=== PATIENT | female | born 1995 | race Caucasian/White ===

== ENCOUNTER 2017-01-17 12:06 | Emergency (ER) | payer OTHER ==
[~2017-01-17] VITALS: Ht 175.3 cm; Wt 113.0 kg
[~2017-01-17 12:06] MED LIST: IBUP800 PO; PREN0.01 PO
[2017-01-17 12:08] VITALS: BP 138/80; PULSE 126; RESP 20; TEMP 98; O2SAT 97
--- NOTE | 2017-01-17 12:51 | PD ---
HPI Chief Complaint: Abdominal Pain Time Seen by Provider: 12:47 Travel History International Travel<30 days: No Contact w/Intl Traveler<30days: No Traveled to known affect area: No History of Present Illness HPI Patient is a 21-year-old female who presents emergency for evaluation of right flank and abdominal pain. Patient states those symptoms started yesterday, she denies any urinary complaints. She states that 2 days ago she started coughing , feeling dizzy, nauseated and complained of sinus pressure that was worse when she bent over. She also reports fatigue and body aches. She has not been vomiting but has had poor oral intake secondary to the nausea. Patient went to an urgent care center this morning who sent her to the emergency department to be evaluated for diffuse abdominal pain. Patient rates her abdominal pain as a 6 out of 10 and describes it as aching. PFSH Past Medical History Kidney Stones: Yes Menopausal: No Past Surgical History Surgical History: No Previous Surgery Family History Family History: Negative Social History Alcohol Use: No Tobacco Use: Yes (formal smoker but quit throughout the ) Substance Use: No Allergies-Medications (Allergen,Severity, Reaction): Coded Allergies: Tramadol (Verified Allergy, Mild, GI UPSET, 01/17/17) Reported Meds & Prescriptions Reported Meds & Active Scripts Active No Active Prescriptions or Reported Medications Review of Systems Except as stated in HPI: all other systems reviewed are Neg General / Constitutional: Positive: Fever, Other (increased fatigue) HENT: Positive: Lightheadedness Cardiovascular: No: Chest Pain or Discomfort Respiratory: Positive: Cough, No: Shortness of Breath Gastrointestinal: Positive: Nausea, Abdominal Pain, Loss of Appetite, No: Vomiting, Diarrhea Genitourinary: Positive: Pelvic Pain, Flank Pain, No: Dysuria Musculoskeletal: Positive: Myalgias Neurologic: Positive: Dizziness Physical Exam Narrative GENERAL: Overweight, well-developed, well-nourished, female. Appears acutely ill, in no acute distress. SKIN: Warm and dry. HEAD: Atraumatic. Normocephalic. EYES: Pupils equal and round. No scleral icterus. No injection or drainage. ENT: No nasal bleeding or discharge. Mucous membranes pink and moist. NECK: Trachea midline. No JVD. CARDIOVASCULAR: Tachycardic. No murmur appreciated. RESPIRATORY: No accessory muscle use. Clear to auscultation. Breath sounds diminished in bases. GASTROINTESTINAL: Abdomen soft, moderately tender to palpation diffusely, more so in the right and left lower quadrants., nondistended. Hepatic and splenic margins not palpable. The bowel sounds. Positive guarding. MUSCULOSKELETAL: No obvious deformities. No clubbing. No cyanosis. No edema. NEUROLOGICAL: Awake and alert. No obvious cranial nerve deficits. Motor grossly within normal limits. Normal speech. PSYCHIATRIC: Appropriate mood and affect; insight and judgment normal. Data Data Last Documented VS Vital Signs Date Time Temp Pulse Resp B/P Pulse Ox O2 Delivery O2 Flow Rate FiO2 01/17/17 12:08 98.0 126 20 138/80 97 Room Air Orders Complete Blood Count With Diff (01/17/17 12:44) Comprehensive Metabolic Panel (01/17/17 12:44) Lipase (01/17/17 12:44) Lactic Acid (01/17/17 12:44) Prothrombin Time / Inr (Pt) (01/17/17 12:44) Act Partial Throm Time (Ptt) (01/17/17 12:44) Urinalysis - C+S If Indicated (01/17/17 12:44) Chest, Single Ap (01/17/17 12:44) Ed Urine Pregnancytest Poc (01/17/17 12:44) Urine Culture (01/17/17 13:06) Labs Laboratory Tests Test 01/17/17 01/17/17 13:05 13:06 Lactic Acid Level 1.1 mmol/L White Blood Count 13.6 TH/MM3 Red Blood Count 4.84 MIL/MM3 Hemoglobin 13.8 GM/DL Hematocrit 41.1 % Mean Corpuscular Volume 84.9 FL Mean Corpuscular Hemoglobin 28.6 PG Mean Corpuscular Hemoglobin 33.7 % Concent Red Cell Distribution Width 13.2 % Platelet Count 269 TH/MM3 Mean Platelet Volume 7.7 FL Neutrophils (%) (Auto) 72.7 % Lymphocytes (%) (Auto) 17.1 % Monocytes (%) (Auto) 9.0 % Eosinophils (%) (Auto) 0.8 % Basophils (%) (Auto) 0.4 % Neutrophils # (Auto) 9.9 TH/MM3 Lymphocytes # (Auto) 2.3 TH/MM3 Monocytes # (Auto) 1.2 TH/MM3 Eosinophils # (Auto) 0.1 TH/MM3 Basophils # (Auto) 0.1 TH/MM3 CBC Comment DIFF FINAL Differential Comment Prothrombin Time 12.1 SEC Prothromb Time International 1.1 RATIO Ratio Activated Partial 29.6 SEC Thromboplast Time Urine Color YELLOW Urine Turbidity HAZY Urine pH 5.5 Urine Specific [place] 1.021 Urine Protein TRACE mg/dL Urine Glucose (UA) NEG mg/dL Urine Ketones NEG mg/dL Urine Occult Blood SMALL Urine Nitrite POS Urine Bilirubin NEG Urine Urobilinogen LESS THAN 2.0 MG/DL Urine Leukocyte Esterase MOD Urine RBC 5 /hpf Urine WBC 18 /hpf Urine Squamous Epithelial 15 /hpf Cells Urine Bacteria MANY /hpf Urine Mucus MOD /lpf Microscopic Urinalysis Comment CULTURE INDICATED Sodium Level 136 MEQ/L Potassium Level 3.9 MEQ/L Chloride Level 105 MEQ/L Carbon Dioxide Level 21.0 MEQ/L Anion Gap 10 MEQ/L Blood Urea Nitrogen 11 MG/DL Creatinine 0.87 MG/DL Estimat Glomerular Filtration 81 ML/MIN Rate Random Glucose 95 MG/DL Calcium Level 8.9 MG/DL Total Bilirubin 0.4 MG/DL Aspartate Amino Transf 14 U/L (AST/SGOT) Alanine Aminotransferase 24 U/L (ALT/SGPT) Alkaline Phosphatase 85 U/L Total Protein 8.3 GM/DL Albumin 3.6 GM/DL Lipase 76 U/L [facility] Medical Decision Making Medical Screen Exam Complete: Yes Emergency Medical Condition: Yes Interpretation(s) Vital Signs Date Time Temp Pulse Resp B/P Pulse Ox O2 Delivery O2 Flow Rate FiO2 01/17/17 12:08 98.0 126 20 138/80 97 Room Air Differential Diagnosis Pyelonephritis versus UTI versus appendicitis versus colitis versus viral syndrome versus other Narrative Course Patient is a 21-year-old female sent by the urgent care center for evaluation of diffuse abdominal pain. She was diagnosed with a urinary tract infection at the urgent care center, and EKG performed there shows sinus tachycardia with no ST changes. EKG is with patient. Patient is abdomen is diffusely tender with a concentration over the right left lower quadrants. Positive CVAT bilaterally. Labs ordered and pending. Patient will likely need a CT scan of the abdomen and pelvis with IV contrast when medical bed available. Care patient be transferred to provider when medical bed available. Scripts No Active Prescriptions or Reported Meds Ailyn Chen Jan 17, 2017 12:51
[2017-01-17 13:24] LABS: AUTOMATED NEUTROPHIL # 9.9 TH/MM3 (1.8-7.7); BASOPHIL # 0.1 TH/MM3 (0-0.2); BASOPHIL % 0.4 % (0.0-2.0); EOSINOPHIL # 0.1 TH/MM3 (0-0.4); EOSINOPHIL % 0.8 % (0.0-4.0); HEMATOCRIT 41.1 % (35.0-46.0); HEMO FLAGS DIFF FINAL; LYMPH % 17.1 % (9.0-44.0); LYMPHOCYTE # 2.3 TH/MM3 (1.0-4.8); MEAN CELL VOLUME 84.9 FL (80.0-100.0); MEAN CORPUSCULAR HEMOGLOBIN 28.6 PG (27.0-34.0); MEAN CORPUSCULAR HGB CONC 33.7 % (32.0-36.0); NEUT % 72.7 % (16.0-70.0); PLATELET COUNT 269 TH/MM3 (150-450); RED BLOOD COUNT 4.84 MIL/MM3 (4.00-5.30); RED CELL DISTRIBUTION WIDTH 13.2 % (11.6-17.2); WHITE BLOOD COUNT 13.6 TH/MM3 (4.0-11.0)
[2017-01-17 13:31] LABS: BACTERIA, URINE MANY /hpf; BLOOD, URINE SMALL (NEG); COMMENT (UR) CULTURE INDICATED; CULTURE IF INDICATED CULTURE INDICATED; GLUCOSE,URINE NEG (NEG); KETONE, URINE NEG (NEG); MUCUS URINE MOD /lpf (OCC); NITRITE,URINE POS (NEG); PH, URINE 5.5 (5.0-8.5); SQUAMOUS EPITHELIAL CELL URINE 15 /hpf (0-5); URINE COLOR YELLOW (YELLW/STRAW)
[2017-01-17 13:33] LABS: APTT (PATIENT) 29.6 SEC (24.3-30.1); INTERNATIONAL NORMALIZED RATIO 1.1 RATIO; PROTHROMBIN TIME - PATIENT 12.1 SEC (9.8-11.6)
--- NOTE | 2017-01-17 13:40 | RADRPT ---
EXAM DATE/TIME: 01/17/2017 13:02 [facility] COMPARISON: No previous studies available for comparison. INDICATIONS : Short of breath, vertigo, palpitations MEDICAL HISTORY : negative test SURGICAL HISTORY : None. ENCOUNTER: Initial ACUITY: 1 day PAIN SCORE: 0/10 LOCATION: Bilateral chest FINDINGS: A single portable upright view of the chest shows a vague parenchymal density within the medial right lung base. Remaining lungs are clear. No effusions. Heart is normal in size. No free air below eithe r hemidiaphragm. Bony structures are unremarkable. CONCLUSION: Right lower lobe parenchymal density potentially related to a an acute infectious infiltrate. A promi nent epicardial fat-pad can have a similar appearance. Followup exam to document resolution is sugges chad. Julio C Junior Jr., MD on January 17, 2017 at 13:38 Board Certified Radiologist. This report was verified electronically.
[2017-01-17 13:46] LABS: ALT (GPT) 24 U/L (10-53); ANION GAP 10 MEQ/L (5-15); AST (GOT) 14 U/L (15-37); BLOOD UREA NITROGEN 11 MG/DL (7-18); CHLORIDE 105 MEQ/L (98-107); GLOMERULAR FILTRATION RATE 81 ML/MIN (>89); POTASSIUM 3.9 MEQ/L (3.5-5.1); SODIUM (NA) 136 MEQ/L (136-145)
[2017-01-17 13:49] LABS: ALKALINE PHOSPHATASE 85 U/L (45-117); TOTAL BILIRUBIN ADULT 0.4 MG/DL (0.2-1.0)
--- NOTE | 2017-01-17 15:26 | PD ---
Physical Exam Time Seen by Provider: 15:23 Narrative She was initially seen and evaluated in triage by CAL Gonzalez. See her note for initial assessment and evaluation. Data Data Last Documented VS Vital Signs Date Time Temp Pulse Resp B/P Pulse Ox O2 Delivery O2 Flow Rate FiO2 01/17/17 12:08 98.0 126 20 138/80 97 Room Air Orders Complete Blood Count With Diff (01/17/17 12:44) Comprehensive Metabolic Panel (01/17/17 12:44) Lipase (01/17/17 12:44) Lactic Acid (01/17/17 12:44) Prothrombin Time / Inr (Pt) (01/17/17 12:44) Act Partial Throm Time (Ptt) (01/17/17 12:44) Urinalysis - C+S If Indicated (01/17/17 12:44) Chest, Single Ap (01/17/17 12:44) Ed Urine Pregnancytest Poc (01/17/17 12:44) Urine Culture (01/17/17 13:06) Ct Abd/Pel W Iv Contrast(Rout) (01/17/17 15:27) Influenzae A/B Antigen (01/17/17 15:34) Sodium Chlor 0.9% 1000 Ml Inj (Ns 1000 M (01/17/17 15:40) Levofloxacin 750 Mg Premix Inj (Levaquin (01/17/17 15:45) Ketorolac Inj (Toradol Inj) (01/17/17 15:45) Iohexol 350 Inj (Omnipaque 350 Inj) (01/17/17 16:23) Labs Laboratory Tests Test 01/17/17 01/17/17 13:05 13:06 Lactic Acid Level 1.1 mmol/L White Blood Count 13.6 TH/MM3 Red Blood Count 4.84 MIL/MM3 Hemoglobin 13.8 GM/DL Hematocrit 41.1 % Mean Corpuscular Volume 84.9 FL Mean Corpuscular Hemoglobin 28.6 PG Mean Corpuscular Hemoglobin 33.7 % Concent Red Cell Distribution Width 13.2 % Platelet Count 269 TH/MM3 Mean Platelet Volume 7.7 FL Neutrophils (%) (Auto) 72.7 % Lymphocytes (%) (Auto) 17.1 % Monocytes (%) (Auto) 9.0 % Eosinophils (%) (Auto) 0.8 % Basophils (%) (Auto) 0.4 % Neutrophils # (Auto) 9.9 TH/MM3 Lymphocytes # (Auto) 2.3 TH/MM3 Monocytes # (Auto) 1.2 TH/MM3 Eosinophils # (Auto) 0.1 TH/MM3 Basophils # (Auto) 0.1 TH/MM3 CBC Comment DIFF FINAL Differential Comment Prothrombin Time 12.1 SEC Prothromb Time International 1.1 RATIO Ratio Activated Partial 29.6 SEC Thromboplast Time Urine Color YELLOW Urine Turbidity HAZY Urine pH 5.5 Urine Specific [place] 1.021 Urine Protein TRACE mg/dL Urine Glucose (UA) NEG mg/dL Urine Ketones NEG mg/dL Urine Occult Blood SMALL Urine Nitrite POS Urine Bilirubin NEG Urine Urobilinogen LESS THAN 2.0 MG/DL Urine Leukocyte Esterase MOD Urine RBC 5 /hpf Urine WBC 18 /hpf Urine Squamous Epithelial 15 /hpf Cells Urine Bacteria MANY /hpf Urine Mucus MOD /lpf Microscopic Urinalysis Comment CULTURE INDICATED Sodium Level 136 MEQ/L Potassium Level 3.9 MEQ/L Chloride Level 105 MEQ/L Carbon Dioxide Level 21.0 MEQ/L Anion Gap 10 MEQ/L Blood Urea Nitrogen 11 MG/DL Creatinine 0.87 MG/DL Estimat Glomerular Filtration 81 ML/MIN Rate Random Glucose 95 MG/DL Calcium Level 8.9 MG/DL Total Bilirubin 0.4 MG/DL Aspartate Amino Transf 14 U/L (AST/SGOT) Alanine Aminotransferase 24 U/L (ALT/SGPT) Alkaline Phosphatase 85 U/L Total Protein 8.3 GM/DL Albumin 3.6 GM/DL Lipase 76 U/L [facility] Medical Record Reviewed: Yes Supervised Visit with CURTIS: Yes Differential Diagnosis Viral illness, pneumonia, influenza, urine or tract infection, pyelonephritis Narrative Course 1535: Urine negative. WBC 13.6. Coags unremarkable. CMP unremarkable. Lipase 76. Lactic acid 1.1. Urinalysis was signs of infection; positive nitrites and leukocyte esterase. Urine Culture pending. Patient placed on cardiopulmonary monitor. IV site obtained. Fluid bolus ordered. Toradol ordered. Rocephin ordered. CT abdomen and pelvis ordered. Influenza ordered. Chest x-ray concludes: Chest X-Ray 01/17/17 0274 Signed Impressions: Service Date/Time: Tuesday, January 17, 2017 13:02 - CONCLUSION: Right lower lobe parenchymal density potentially related to a an acute infectious infiltrate. A prominent epicardial fat-pad can have a similar appearance. Followup exam to document resolution is suggested. Julio C Junior Jr., MD 1706: CT abdomen/pelvis concludes: Last 24 hours Impressions Abdomen/Pelvis CT 01/17/17 1527 Signed Impressions: Service Date/Time: Tuesday, January 17, 2017 16:23 - CONCLUSION: Small subcentimeter area of decreased density cortex right kidney mid to upper pole laterally of indeterminate chronicity. This could represent a remote insult or small area of inflammation. 4 or 5 cm length of terminal ileum 5-6 cm proximal to the ileocecal valve which is mildly dilated and fluid filled nonspecific as to significance or etiology. Holland Foy MD Chest X-Ray 01/17/17 1244 Signed Impressions: Service Date/Time: Tuesday, January 17, 2017 13:02 - CONCLUSION: Right lower lobe parenchymal density potentially related to a an acute infectious infiltrate. A prominent epicardial fat-pad can have a similar appearance. Followup exam to document resolution is suggested. Julio C Junior Jr., MD 1707: Negative influenza. Dr. Martinez updated on CT scan. Recommends Levaquin 750 mg 6 days at home and follow-up outpatient. Levaquin and ibuprofen prescribed for home. Patient verbalizes understanding agreement with treatment plan. Patient is medically cleared and stable for discharge. Discussed reasons to return to the emergency department. Instructed patient to follow up with primary care provider. Patient agrees with treatment plan. The patients vital signs are stable and the patient is stable for outpatient follow- up and treatment. Patient discharged home, stable and in no acute distress. Diagnosis Primary Impression: Pneumonia Qualified Code: J18.1 - Pneumonia of right lower lobe due to infectious organism Additional Impression: UTI (urinary tract infection) Qualified Code: N39.0 - Urinary tract infection without hematuria, site unspecified Referrals: Primary Care Physician Patient Instructions: Abdominal Pain (ED), Community Acquired Pneumonia (ED), General Instructions, Urinary Tract Infection in Women (ED) Departure Forms: Tests/Procedures, Work Release Enter return to work date: Jan 21, 2017 Additional Instruction: Antibiotics as prescribed and complete full course Ibuprofen or Tylenol as instructed and as needed for fever/pain [id number] cough and cold medications as directed and as needed for symptom management Get plenty of sleep/rest Drink plenty of fluids to prevent dehydration; popsicles and Gatorade Use an air humidifier/turn off ceiling fans Drink plenty of fluids Maintain good personal hygiene Follow-up with primary care provider Return immediately to the emergency department with worsening of symptoms Med/Other Pt SpecificInfo: Prescription(s) given Scripts Ibuprofen 800 Mg Eng554 Mg PO Q6HR PRN (PAIN) #30 TAB Ref 0 Prov:Latoya Lobato 01/17/17 Levofloxacin (Levaquin)750 Mg [id number] Mg PO DAILY 6 Days Ref 0 Prov:Latoya Lobato 01/17/17 Disposition: 01 DISCHARGE HOME Condition: Stable Latoya Lobato Jan 17, 2017 15:26
[2017-01-17] MEDS ORDERED: SODIUM CHLOR 0.9% 1000 ML INJ 1,000 ML IV SCH (15:40)
[2017-01-17] MEDS ORDERED: KETOROLAC TROMETHAMINE 30 MG/ML (IVP) VIAL IV PUSH ONE (15:45)
[2017-01-17] MEDS ORDERED: LEVOFLOXACIN 750 MG PREMIX INJ 150 ML IV ONE (15:45)
[2017-01-17] MEDS ORDERED: IOHEXOL 350 MG/ML 10 ML VIAL (for RAD DIAG) IV ONE (16:23)
--- NOTE | 2017-01-17 16:43 | RADRPT ---
EXAM DATE/TIME: 01/17/2017 16:23 [facility] COMPARISON: No previous studies available for comparison. INDICATIONS : Abdomen pain. IV CONTRAST: 100 cc Omnipaque 350 (iohexol) IV ORAL CONTRAST: No oral contrast ingested. RADIATION DOSE: 16.07 CTDIvol (mGy) MEDICAL HISTORY : Renal calculi. SURGICAL HISTORY : None. ENCOUNTER: Initial ACUITY: 1 day PAIN SCALE: 5/10 LOCATION: abdomen. TECHNIQUE: Volumetric scanning of the abdomen and pelvis was performed. Using automated exposure control and adjustment of the mA and/or kV according to patient size, radiation dose was kept as low as reasonably achievable to obtain optimal diagnostic quality images. FINDINGS: LOWER LUNGS: Clear lung joy LIVER: Homogeneous density without lesion. There is no dilation of the biliary tree. No calcifi ed gallstones. Gallbladder seen as a luminal structure without wall thickening SPLEEN: Normal size without lesion. PANCREAS: Within normal limits. KIDNEYS: Normal in size and shape. There is no mass, stone or hydronephrosis. There is a small a varinder of the right kidney lateral cortex of centimeters in size of diminished density nonspecific could represent remote insult or small area of inflammation ADRENAL GLANDS: Within normal limits. VASCULAR: There is no aortic aneurysm. BOWEL/MESENTERY: The stomach, small bowel, and colon demonstrate no acute abnormality. There is no free intraperitoneal air or fluid. Appendix visualized and is normal. There is a 5 cm length of il eum proximal to the terminal ileum of mild dilatation nonspecific. ABDOMINAL WALL: Within normal limits. RETROPERITONEUM: There is no lymphadenopathy. BLADDER: No wall thickening or mass. REPRODUCTIVE: Within normal limits. INGUINAL: There is no lymphadenopathy or hernia. MUSCULOSKELETAL: Within normal limits for patient age. CONCLUSION: Small subcentimeter area of decreased density cortex right kidney mid to upper pole l aterally of indeterminate chronicity. This could represent a remote insult or small area of inflammat ion. 4 or 5 cm length of terminal ileum 5-6 cm proximal to the i leocecal valve which is mildly dilated and fluid filled nonspecific as to significance or etiology. Holland Foy MD on January 17, 2017 at 16:34 Board Certified Radiologist. This report was verified electronically.
[2017-01-17] MEDS ORDERED: LEVA750T PO (17:10)
[2017-01-17] MEDS ORDERED: IBUP800T23 PO (17:10)
[2017-01-17 17:50] VITALS: BP 129/76
== END 2017-01-17 18:01 | disposition home or self-care (01) ==
LOC: NEPE 12:06
DX: J18.1 Lobar pneumonia, unspecified organism (principal); N39.0 Urinary tract infection, site not specified; B96.20 Unspecified Escherichia coli [E. coli] as the cause of diseases classified elsewhere
CPT/HCPCS: 71010; 74177; 80053; 81001; 83605; 83690; 84703; 85025; 85610; 85730; 87077; 87086; 87186; 87804; 96374; 96375; 99284; J1885; J1956; J7030; Q9967

== ENCOUNTER 2017-06-14 13:06 | Emergency (ER) | payer OTHER ==
[~2017-06-14 13:06] MED LIST changes: -IBUP800 PO; +IBUP800T23 PO; +LEVA750T PO; -PREN0.01 PO
[2017-06-14 15:45] LABS: BACTERIA, URINE FEW /hpf; BLOOD, URINE NEG (NEG); COMMENT (UR) CULT NOT INDICATED; CULTURE IF INDICATED CULT NOT INDICATED; GLUCOSE,URINE NEG (NEG); KETONE, URINE NEG (NEG); MUCUS URINE FEW /lpf (OCC); NITRITE,URINE NEG (NEG); SQUAMOUS EPITHELIAL CELL URINE 2 /hpf (0-5); URINE COLOR YELLOW (YELLW/STRAW)
--- NOTE | 2017-06-14 15:46 | PD ---
HPI Chief Complaint Cramping Date Seen: Jun 14, 2017 Time Seen: 15:05 Travel History International Travel<30 Days: No Contact w/Intl Traveler<30Days: No Known Affected Area: No History of Present Illness HPI 21y/o , IUP at 23.0 PNC complicated by obesity, h/o bedrest with prior at 30w for " ctx" Patient presents c/o cramping onset last night at 7:30pm that was intermittent in nature, about 1-2x/hour. There were no aggravating or alleviating factors and no attempted treatments. She reports that she drinks "a lot" of water and works at a daycare. She reports she started feeling better with resolution of the cramping but started feeling constant cramping again this morning with the constant cramp lasting from 8am until 10:30am. She reports this has resolved and she is now feeling cramps about 3-4x/hr lasting about 2min each although this is hard for her to quantify. She denies any aggravating or alleviating factors and there are no attempted treatments. She denies any LOF or VB. She denies any urinary symptoms or other complains. She has felt FM since arriving. Para: 1 : 2 Miscarriage: 0 : 0 History Past Medical History Narrative Medical Obesity Denies other medical problems Obstetric History Obstetric History FT although was placed on "bedrest" for ctx Past Surgical History Narrative Surgical Denies Family History Narrative Family History DM Social History Alcohol Use: No Tobacco Use: No Substance Abuse: No Allergies-Medications (Allergen,Severity, Reaction): Coded Allergies: Tramadol (Verified Allergy, Mild, GI UPSET, 01/17/17) Home Meds Active Scripts Ibuprofen 800 Mg [id number] Mg PO Q6HR PRN (PAIN) #30 TAB Ref 0 Prov:Latoya Lobato TOEING STOCKINGS 01/17/17 Levofloxacin (Levaquin)750 Mg [id number] Mg PO DAILY 6 Days Ref 0 Prov:Latoya Lobato TOEING STOCKINGS 01/17/17 Review of Systems Except as stated in HPI: all other systems reviewed are Neg Physical Exam Narrative GENERAL: Well-nourished, well-developed patient. SKIN: Warm and dry. HEAD: Normocephalic and atraumatic. EYES: No scleral icterus. No injection or drainage. ENT: No nasal drainage noted. Mucous membranes pink. Airway patent. NECK: Supple, trachea midline. No JVD. CARDIOVASCULAR: Regular rate and rhythm without murmurs, gallops, or rubs. RESPIRATORY: Breath sounds equal bilaterally. No accessory muscle use. BREASTS: Bilateral exam showed no masses , no retractions, no nipple discharge. ABDOMEN/GI: Abdomen soft, non-tender, bowel sounds present, no rebound, no guarding Gravid GENITOURINARY: External Genitalia: intact and normal in appearance BUS glands: normal Cervix: no cervical/vaginal masses noted, cervix visually closed Dilatation: closed Effacement: thich Station: high, posterior cervix, cervix firm Presentation: [-] Membranes: [intact or ruptured] Uterine Contractions: none noted FHT's: Baseline: 130s EXTREMITIES: No cyanosis or edema. BACK: Nontender without obvious deformity. No CVA tenderness. NEUROLOGICAL: Awake and alert. Motor and sensory grossly within normal limits. Five out of 5 muscle strength in all muscle groups. Normal speech. PSYCH: grossly normal memory, affect, rest grossly normal MS: grossly normal ROM, gait, muscle strength Data Data Orders Urinalysis - C+S If Indicated (06/14/17 15:23) Fibronectin (06/14/17 15:23) Wet Prep Profile (06/14/17 15:23) MDM Plan A/P: 21y/o 1. IUP at 23.0 2. Cramping: no evidence of PTL,strict PTL precautions. No ctx noted on monitor , SVE closed/thick, and FFN negative. Discussed results with patient, reassuring r/o of PTL 3. UA: no evidence of UTI 4. wellbeing: FHR appropriate for gestational age 5. Obesity 6. F/U with Dr. Pak in 2-3d or sooner if needed Diagnosis Diagnosis: Primary Impression: 23 weeks gestation of Additional Impression: False labor before 37 completed weeks of gestation during in second trimester, antepartum Disposition: 01 DISCHARGE HOME Condition: Critical Patient Instructions: Abdominal Pain in (ED), Movement (ED), Early Labor Signs (ED), Labor (ED) Ara Crespo MD Jun 14, 2017 15:46
== END 2017-06-14 15:30 | disposition home or self-care (01) ==
LOC: HOBED 13:06
DX: O47.03 False labor before 37 completed weeks of gestation, third trimester (principal); O99.212 Obesity complicating pregnancy, second trimester; Z3A.23 23 weeks gestation of pregnancy; Z79.899 Other long term (current) drug therapy
CPT/HCPCS: 76815; 81001; 82731; 87210

== ENCOUNTER 2017-08-18 10:44 | Emergency (ER) | payer MEDICAID, OTHER ==
[~2017-08-18] VITALS: Ht 175.3 cm; Wt 132.0 kg
[2017-08-18 10:47] VITALS: BP 145/80; PULSE 98; RESP 17; TEMP 97.9; O2SAT 100
--- NOTE | 2017-08-18 11:41 | PD ---
HPI Chief Complaint: Cardiac Complaint Time Seen by Provider: 11:25 Travel History International Travel<30 days: No Contact w/Intl Traveler<30days: No Traveled to known affect area: No History of Present Illness HPI 21-year-old at 32 weeks presents with yesterday developing body aches and general ill feeling and today having lower abdominal pressure and chest pain. She states that she feels like she has the flu but doesn't have cough or congestion. She states yesterday she was also having bad back pain but that resolved after she took Tylenol this morning. She touch base with her concrete sculptor Dr. Rios and they advised for her to calm to the emergency department. She states that she last saw them yesterday morning and everything was okay. She states with her first she was on bedrest from 30 weeks on for labor and everything went okay. She states she was able to make it to 3 days before her delivery date. She denies other concurrent complaints. She denies specific modifying factors. She denies specific chest pain now and states that it is intermittent. PFSH Past Medical History Kidney Stones: Yes ?: LMP: DEC 2016 Menopausal: No Past Surgical History Surgical History: No Previous Surgery Social History Alcohol Use: No Tobacco Use: No Substance Use: No Allergies-Medications (Allergen,Severity, Reaction): Coded Allergies: tramadol (Unverified Allergy, Mild, GI UPSET, 08/18/17) Reported Meds & Prescriptions Reported Meds & Active Scripts Active No Active Prescriptions or Reported Medications Review of Systems Except as stated in HPI: all other systems reviewed are Neg Physical Exam Narrative GENERAL: Well-nourished, well-developed patient. Well-appearing SKIN: Warm and dry. HEAD: Normocephalic and atraumatic. EYES: No injection or drainage. ENT: No nasal drainage noted. Mucous membranes moist NECK: Supple, trachea midline. No meningeal signs CARDIOVASCULAR: Regular rate and rhythm RESPIRATORY: Breath sounds equal bilaterally. No accessory muscle use. GASTROINTESTINAL: Abdomen soft, non-tender EXTREMITIES: No edema. NEUROLOGICAL: Awake and alert. Motor and sensory grossly within normal limits. Normal speech. Data Data Last Documented VS Vital Signs Date Time Temp Pulse Resp B/P (MAP) Pulse Ox O2 Delivery O2 Flow Rate FiO2 08/18/17 10:47 97.9 98 17 145/80 (101) 100 Orders Orders Electrocardiogram (08/18/17 ) Urinalysis - C+S If Indicated (08/18/17 11:36) Complete Blood Count With Diff (08/18/17 11:36) Basic Metabolic Panel (Bmp) (08/18/17 11:36) Iv Access Insert/Monitor (08/18/17 11:36) Influenzae A/B Antigen (08/18/17 11:36) Sodium Chlor 0.9% 1000 Ml Inj (Ns 1000 M (08/18/17 11:45) Labs Laboratory Tests Test 08/18/17 11:30 08/18/17 11:43 White Blood Count 10.5 TH/MM3 Red Blood Count 3.92 MIL/MM3 Hemoglobin 11.1 GM/DL Hematocrit 34.2 % Mean Corpuscular Volume 87.1 FL Mean Corpuscular Hemoglobin 28.4 PG Mean Corpuscular Hemoglobin Concent 32.6 % Red Cell Distribution Width 14.3 % Platelet Count 243 TH/MM3 Mean Platelet Volume 8.4 FL Neutrophils (%) (Auto) 83.3 % Lymphocytes (%) (Auto) 9.3 % Monocytes (%) (Auto) 7.1 % Eosinophils (%) (Auto) 0.1 % Basophils (%) (Auto) 0.2 % Neutrophils # (Auto) 8.8 TH/MM3 Lymphocytes # (Auto) 1.0 TH/MM3 Monocytes # (Auto) 0.7 TH/MM3 Eosinophils # (Auto) 0.0 TH/MM3 Basophils # (Auto) 0.0 TH/MM3 CBC Comment DIFF FINAL Differential Comment Blood Urea Nitrogen 8 MG/DL Creatinine 0.64 MG/DL Random Glucose 86 MG/DL Calcium Level 8.3 MG/DL Sodium Level 137 MEQ/L Potassium Level 3.5 MEQ/L Chloride Level 106 MEQ/L Carbon Dioxide Level 21.5 MEQ/L Anion Gap 10 MEQ/L Estimat Glomerular Filtration Rate 116 ML/MIN Urine Color YELLOW Urine Turbidity HAZY Urine pH 6.5 Urine Specific [place] 1.011 Urine Protein TRACE mg/dL Urine Glucose (UA) NEG mg/dL Urine Ketones NEG mg/dL Urine Occult Blood NEG Urine Nitrite NEG Urine Bilirubin NEG Urine Urobilinogen LESS THAN 2.0 MG/DL Urine Leukocyte Esterase SMALL Urine RBC 1 /hpf Urine WBC 3 /hpf Urine Squamous Epithelial Cells 3 /hpf Urine Bacteria FEW /hpf Urine Mucus FEW /lpf Microscopic Urinalysis Comment CULT NOT INDICATED MDM Medical Decision Making Medical Screen Exam Complete: Yes Emergency Medical Condition: Yes Medical Record Reviewed: Yes (past history confirmed) Interpretation(s) CBC & BMP Diagram 08/18/17 11:30 Calcium Level 8.3 L Differential Diagnosis UTI, flu, dehydration, stone, labor Narrative Course Will check blood work, urinalysis and dose with IV fluids and discussed with her concrete sculptor Emergency Department Pelvic ultrasound was performed with patient consent. The curvilinear probe was used in the transverse and sagittal views within the suprapubic region revealing single intrauterine . heart rate was 136 by M-mode, movement noted Physician Communication Physician Communication dr rios states to send to ob ed dr castaneda the ob hospitalist states will follow labs and can send up Diagnosis Primary Impression: Body aches Additional Impression: Qualified Codes: Z3A.32 - 32 weeks gestation of Scripts No Active Prescriptions or Reported Meds Disposition: 70 TRANSFER TO OTHER FACILITY (ob ed) Condition: Stable Gely Rodriguez MD Aug 18, 2017 11:41
[2017-08-18] MEDS ORDERED: SODIUM CHLOR 0.9% 1000 ML INJ 1,000 ML IV ONE (11:45)
[2017-08-18 12:09] LABS: AUTOMATED NEUTROPHIL # 8.8 TH/MM3 (1.8-7.7); BASOPHIL % 0.2 % (0.0-2.0); EOSINOPHIL % 0.1 % (0.0-4.0); HEMATOCRIT 34.2 % (35.0-46.0); HEMO FLAGS DIFF FINAL; LYMPH % 9.3 % (9.0-44.0); MEAN CELL VOLUME 87.1 FL (80.0-100.0); MEAN CORPUSCULAR HEMOGLOBIN 28.4 PG (27.0-34.0); MEAN CORPUSCULAR HGB CONC 32.6 % (32.0-36.0); MONO % 7.1 % (0.0-8.0); NEUT % 83.3 % (16.0-70.0); PLATELET COUNT 243 TH/MM3 (150-450); RED BLOOD COUNT 3.92 MIL/MM3 (4.00-5.30); RED CELL DISTRIBUTION WIDTH 14.3 % (11.6-17.2); WHITE BLOOD COUNT 10.5 TH/MM3 (4.0-11.0)
[2017-08-18 12:21] LABS: BACTERIA, URINE FEW /hpf; BLOOD, URINE NEG (NEG); COMMENT (UR) CULT NOT INDICATED; CULTURE IF INDICATED CULT NOT INDICATED; GLUCOSE,URINE NEG (NEG); KETONE, URINE NEG (NEG); MUCUS URINE FEW /lpf (OCC); NITRITE,URINE NEG (NEG); PH, URINE 6.5 (5.0-8.5); SQUAMOUS EPITHELIAL CELL URINE 3 /hpf (0-5); URINE COLOR YELLOW (YELLW/STRAW)
[2017-08-18 12:21] LABS: BICARBONATE 21.5 MEQ/L (21.0-32.0); POTASSIUM 3.5 MEQ/L (3.5-5.1)
[2017-08-18] MEDS ORDERED: DEXTROSE 5% IN WATE 1000ML INJ 1,000 ML IV ONE (13:45)
--- NOTE | 2017-08-18 13:47 | EKG ---
Date Performed: 08/18/2017 Time Performed: 11:02:23 PTAGE: 21 years EKG: Sinus rhythm MINIMAL VOLTAGE CRITERIA FOR LVH, CONSIDER NORMAL VARIANT NONSPECIFIC ST & T-WAVE ABNORMALITY BORDER LINE ECG NO PREVIOUS TRACING DOCTOR: Magno Parada Interpretating Date/Time 08/18/2017 13:46:36
[2017-08-18] MEDS ORDERED: ONDANSETRON HCL 4 MG/2 ML VIAL IV ONE (14:00)
[2017-08-18] MEDS ORDERED: DEXTROSE 5%-LACTATED RING INJ 1,000 ML IV SCH (14:45)
--- NOTE | 2017-08-18 14:59 | PD ---
HPI Chief Complaint N/V, abdominal cramping Travel History International Travel<30 Days: No Contact w/Intl Traveler<30Days: No Known Affected Area: No History of Present Illness HPI 21-year-old , IUP at 32.2 care complicated by obesity, history of threatened labor in her previous The patient presents as a transfer from the main ED where she was seen for evaluation for chest pain and body aches. She was ruled out for any concerning issues with the chest pain in the ED and the ED initiated at work for her muscle aches including CBC, CMP, UA, and influenza swab. The patient reports that she was feeling fine yesterday until approximately 2 PM in the afternoon when she started to feel nauseous. She also reports that around the same time she started feeling body aches "like she got hit by a truck"and a mild headache. She reported associated nausea and back pain and even drinking water makes her nauseous. She denies any emesis. She reports that she is not eating or drinking because she feels nauseous. She denies any fever or chills. She denies any other complaints except some lower abdominal cramping that is irregular and inconsistent in nature and started this morning. She denies any painful contractions. She reports good movement. She denies any LOF or VB. Denies any visual changes, right upper quadrant, or epigastric pain. Weeks Gestation: 32 Para: 1 : 2 History Obstetric History Obstetric History Full-term 1 Past Surgical History Narrative Surgical Denies Surgical History: No Previous Surgery Family History Narrative Family History Diabetes mellitus Social History Alcohol Use: No Tobacco Use: No Substance Abuse: No Allergies-Medications (Allergen,Severity, Reaction): Coded Allergies: tramadol (Unverified Adverse Reaction, Mild, GI UPSET, 08/18/17) Home Meds Discontinued Scripts Ibuprofen (Ibuprofen) 800 Mg Tab, 800 MG PO Q6HR Y for PAIN, #30 TAB 0 Refills Prov:Latoya Lobato 01/17/17 Review of Systems Except as stated in HPI: all other systems reviewed are Neg HENT: Headaches Cardiovascular: Chest Pain or Discomfort (evaluated in ED) Gastrointestinal: Nausea, Abdominal Pain Neurologic: Headache Physical Exam Vital Signs Date Time Temp Pulse Resp B/P (MAP) Pulse Ox O2 Delivery O2 Flow Rate FiO2 08/18/17 12:34 08/18/17 10:47 97.9 98 17 145/80 (101) 100 Narrative GENERAL: Well-nourished, well-developed patient. SKIN: Warm and dry. HEAD: Normocephalic and atraumatic. EYES: No scleral icterus. No injection or drainage. ENT: No nasal drainage noted. Mucous membranes pink. Airway patent. NECK: Supple, trachea midline. No JVD. CARDIOVASCULAR: Regular rate and rhythm without murmurs, gallops, or rubs. RESPIRATORY: Breath sounds equal bilaterally. No accessory muscle use. BREASTS: Deferred ABDOMEN/GI: Abdomen soft, non-tender, bowel sounds present, no rebound, no guarding Gravid GENITOURINARY: External Genitalia: intact and normal in appearance. Normal BUS. No cervical or vaginal masses. Grossly normal rugae. fibronectin was obtained. SVE closed/thick/high/posterior. FHT's: heart tones were with baseline in the 140s with good accelerations and no repetitive decelerations noted. There is moderate long-term variability. The heart rate tracing is reactive and category 1. Irregular contractions were noted which resolved with IV hydration. EXTREMITIES: No cyanosis or edema. BACK: Nontender without obvious deformity. No CVA tenderness. NEUROLOGICAL: Awake and alert. Motor and sensory grossly within normal limits. Five out of 5 muscle strength in all muscle groups. Normal speech. Musculoskeletal: Grossly normal ROM, gait, muscle strength Psychiatric: Grossly normal memory and affect. Data Data Orders Orders Electrocardiogram (08/18/17 ) Urinalysis - C+S If Indicated (08/18/17 11:36) Complete Blood Count With Diff (08/18/17 11:36) Basic Metabolic Panel (Bmp) (08/18/17 11:36) Iv Access Insert/Monitor (08/18/17 11:36) Influenzae A/B Antigen (08/18/17 11:36) Sodium Chlor 0.9% 1000 Ml Inj (Ns 1000 M (08/18/17 11:45) Ondansetron Inj (Zofran Inj) (08/18/17 14:00) Dextrose 5%-Lactated Ring Inj (D5-Lr Inj (08/18/17 14:45) Protein Creat Ratio, Random Ur (08/18/17 14:49) Potassium Chloride (Kcl) (08/18/17 15:00) Ondansetron Inj (Zofran Inj) (08/18/17 15:00) Fibronectin (08/18/17 14:55) Labs Laboratory Tests Test 08/18/17 11:30 08/18/17 11:43 White Blood Count 10.5 Red Blood Count 3.92 Hemoglobin 11.1 Hematocrit 34.2 Mean Corpuscular Volume 87.1 Mean Corpuscular Hemoglobin 28.4 Mean Corpuscular Hemoglobin Concent 32.6 Red Cell Distribution Width 14.3 Platelet Count 243 Mean Platelet Volume 8.4 Neutrophils (%) (Auto) 83.3 Lymphocytes (%) (Auto) 9.3 Monocytes (%) (Auto) 7.1 Eosinophils (%) (Auto) 0.1 Basophils (%) (Auto) 0.2 Neutrophils # (Auto) 8.8 Lymphocytes # (Auto) 1.0 Monocytes # (Auto) 0.7 Eosinophils # (Auto) 0.0 Basophils # (Auto) 0.0 CBC Comment DIFF FINAL Differential Comment Blood Urea Nitrogen 8 Creatinine 0.64 Random Glucose 86 Calcium Level 8.3 Sodium Level 137 Potassium Level 3.5 Chloride Level 106 Carbon Dioxide Level 21.5 Anion Gap 10 Estimat Glomerular Filtration Rate 116 Urine Color YELLOW Urine Turbidity HAZY Urine pH 6.5 Urine Specific [place] 1.011 Urine Protein TRACE Urine Glucose (UA) NEG Urine Ketones NEG Urine Occult Blood NEG Urine Nitrite NEG Urine Bilirubin NEG Urine Urobilinogen LESS THAN 2.0 Urine Leukocyte Esterase SMALL Urine RBC 1 Urine WBC 3 Urine Squamous Epithelial Cells 3 Urine Bacteria FEW Urine Mucus FEW Microscopic Urinalysis Comment CULT NOT INDICATED Date/Time Source Procedure Growth Status 08/18/17 11:45 Nasal Aspirate Influenza Types A,B Antigen (GURJIT) - Final NEGATIVE FOR FLU A AND B ANTIGEN.... Complete MDM Plan Assessment/plan: 1. IUP at 32.2 2. Body aches/headache: No evidence of influenza by negative testing today 3. Nausea: Patient without any emesis, may have very mild gastroenteritis, patient feels significantly improved after IV fluids and was able to tolerate a by mouth challenge after IV antiemetics. Normal laboratory evaluation with low- normal potassium at 3.5, patient was given 40 mEq of potassium by mouth which she tolerated well. Rx given for Zofran 4 mg ODT every 6 hours PRN nausea. Strict nausea vomiting/gastroenteritis precautions given. 4. Uterine irritability/ contractions: No evidence of labor with closed cervix and irritability which resolved with IV hydration. FFN 5. well-being: Reassuring testing with FHR reassuring and appropriate for gestational age, reactive NST, good accelerations noted no repetitive decelerations. kick counts daily. 6. Obesity 7. Elevated protein creatinine ratio: Patient had mostly normal blood pressures on evaluation, however had initially slightly elevated blood pressure at presentation from ED that resolved on evaluation; urinalysis showed trace protein so creatinine ratio was obtained and was elevated. Will discharge patient home and collect a 24-hour urine. Strict preeclampsia precautions. Other labs were normal. The patient had a mild headache, she declined Tylenol in the YURY. Modified bed rest until cleared by primary OB. Discussed evaluation and follow-up 24-hour urine with Dr. Molina who is in agreement with plan. 8. Follow up with primary OB in 2-3 days Diagnosis Diagnosis: Primary Impression: Body aches Additional Impression: Qualified Codes: Z3A.32 - 32 weeks gestation of Disposition: 01 DISCHARGE HOME Condition: Good Scripts No Active Prescriptions or Reported Meds Patient Instructions: General Instructions, Early Labor Signs (ED), Movement (ED) Additional Instructions: F/U with primary OB in 2-3d or sooner if needed Departure Forms: Tests/Procedures Ara Crespo MD Aug 18, 2017 14:59
[2017-08-18] MEDS ORDERED: ONDANSETRON HCL 4 MG/2 ML VIAL IV PUSH ONE (15:00)
[2017-08-18] MEDS ORDERED: POTASSIUM CHLORIDE 20 MEQ CONTROLLED RELEASE TAB PO ONE (15:00)
== END 2017-08-18 16:22 | disposition home or self-care (01) ==
LOC: NEPC 10:44 → HOBED 16:22
DX: O26.893 Other specified pregnancy related conditions, third trimester (principal); R52 Pain, unspecified; R51 Headache; R11.0 Nausea; M54.9 Dorsalgia, unspecified; R07.9 Chest pain, unspecified; R94.31 Abnormal electrocardiogram [ECG] [EKG]; O99.213 Obesity complicating pregnancy, third trimester; Z3A.32 32 weeks gestation of pregnancy
CPT/HCPCS: 80048; 81001; 82570; 82731; 84156; 85025; 87804; 93005; 96360; 96361; 99284; J2405; J7030

== ENCOUNTER → 2017-08-20 | Outpatient (CLI) | payer OTHER ==
[~2017-08-20] MED LIST changes: +IBUP-232 PO; -IBUP800T23 PO; -LEVA750T PO; +PREN29TA PO; +SENN1TAB PO
== END ==
LOC: HLAB 12:33
PROVIDERS: ATTEND Obstetrics & Gynecology
DX: O26.893 Other specified pregnancy related conditions, third trimester (principal); R07.9 Chest pain, unspecified; R94.31 Abnormal electrocardiogram [ECG] [EKG]; Z3A.32 32 weeks gestation of pregnancy
CPT/HCPCS: 82575; 84157

== ENCOUNTER 2017-08-29 10:51 | Emergency (ER) | payer OTHER ==
[2017-08-29 11:07] VITALS: RESP 18
[2017-08-29 11:08] VITALS: TEMP 97.8
[2017-08-29 11:09] VITALS: BP 135/81; PULSE 103
--- NOTE | 2017-08-29 11:30 | PD ---
HPI Chief Complaint Decreased Movement Date Seen: Aug 29, 2017 Travel History International Travel<30 Days: No Contact w/Intl Traveler<30Days: No History of Present Illness HPI 21 yo @ 33w6d. care with Dr. Rios. Patient being followed for history of labile BPs, obesity, UC now resolved, and now itching. Today she presents with c/o decreased FM for one day. She notes some FM but not big movements. No UC, LOF, VB. FFN was negative on 08/18/2017. She had some labile BP last months and a 24 hour urine noted 600mg/d total protein. Her BPs have since been normal and she has been asymptomatic. She developed itching over the past week and was seen in by Dr. Rios on Tuesday. Labs - bile acids were obtained and will take at least a week to be returned. She has a f/u visit on , Sep 01. She c/o generalized itching on legs and hands , no rash noted. She has been taking Benadryl over the weekend. History Past Medical History Narrative Medical Abnormal pap smear LGSIL Recurrent bronchitis Obstetric History Obstetric History at 39 weeks Past Surgical History Surgical History: No Previous Surgery Family History Family History: Negative Social History Alcohol Use: No Tobacco Use: No Substance Abuse: No Allergies-Medications (Allergen,Severity, Reaction): Coded Allergies: tramadol (Unverified Adverse Reaction, Mild, GI UPSET, 08/18/17) Home Meds No Active Prescriptions or Reported Meds Review of Systems General / Constitutional: No: Fever, Chills Eyes: No: Blurred Vision, Visual changes HENT: No: Headaches, Lightheadedness Cardiovascular: No: Chest Pain or Discomfort, Palpitations Respiratory: No: Cough, Short of Breath Gastrointestinal: No: Nausea, Vomiting, Diarrhea, Abdominal Pain Genitourinary: No: Urgency, Frequency, Dysuria, Discharge, Vaginal Bleeding Musculoskeletal: No: Limited ROM, Weakness Skin: No Rash, Itching, Dryness, No Lesions Neurologic: No: Dizziness, Syncope, Focal Abnormalities, Coordination Problem Physical Exam Vital Signs Date Time Temp Pulse Resp B/P (MAP) Pulse Ox O2 Delivery O2 Flow Rate FiO2 08/29/17 11:09 103 135/81 (99) 08/29/17 11:08 97.8 08/29/17 11:07 18 Narrative GENERAL: Well-nourished, well-developed patient. NAD SKIN: Warm and dry. No lesions noted HEAD: Normocephalic and atraumatic. EYES: No scleral icterus. No injection or drainage. ENT: No nasal drainage noted. Mucous membranes pink. Airway patent. NECK: trachea midline. No JVD. CARDIOVASCULAR: Regular rate VSS RESPIRATORY: No accessory muscle use. ABDOMEN/GI: Abdomen soft, non-tender, bowel sounds present, no rebound, no guarding Gravid FHT's: Category: I Baseline: 125 Reactive: + accelerations Variability: mod Decels: none EXTREMITIES: No cyanosis or edema. BACK: Nontender without obvious deformity. NEUROLOGICAL: Awake and alert. Motor and sensory grossly within normal limits. . Normal speech. Data Data Orders Orders Vital Signs (Adult) .ON ADMISSION (08/29/17 11:00) ^ Labor Status (08/29/17 11:00) MDM Narrative Course / MDM 33w6d -Decreased FM Reactive NST. FM noted. -Hx of labile BPs. Prior 24 hour urine 600mg/d BP normal today and no s/s of pre-eclampsia Hx of UC No UC at this time FFN negative 08/18 -New onset of itching for past week Taking Benadryl, declines Vistaril at this time Bile Acids pending, will not be back until later in the week Reviewed records from office Patient has f/u office OB visit this week on Sep 01. Diagnosis Diagnosis: Primary Impression: Decreased movement during in third trimester, antepartum Qualified Codes: O36.8130 - Decreased movements, third trimester, not applicable or unspecified Additional Impressions: 33 weeks gestation of Itching Disposition: DISCHARGE HOME Condition: Good Scripts No Active Prescriptions or Reported Meds Natacha Leija MD Aug 29, 2017 11:30
== END 2017-08-29 13:07 | disposition home or self-care (01) ==
LOC: HOBED 10:51
DX: O36.8130 Decreased fetal movements, third trimester, not applicable or unspecified (principal); O26.893 Other specified pregnancy related conditions, third trimester; O99.213 Obesity complicating pregnancy, third trimester; Z3A.33 33 weeks gestation of pregnancy
CPT/HCPCS: 59025

== ENCOUNTER 2017-09-16 22:01 | Emergency (ER) | payer OTHER ==
--- NOTE | 2017-09-16 22:47 | PD ---
HPI Chief Complaint Cramping Date Seen: Sep 16, 2017 Time Seen: 22:37 Travel History International Travel<30 Days: No Contact w/Intl Traveler<30Days: No Known Affected Area: No History of Present Illness HPI 21-year-old 2 para 1 at 36 weeks 4 days gestation who comes tonight for cramping and concerned her blood pressure at home was elevated. She has been followed for preeclampsia with severe features with twice weekly visits with Dr. Rios. She takes her blood pressure at home with a wrist monitor and felt that it was higher than usual tonight. She denies any headache, visual changes or abdominal pain. She was 2 cm in the office this week and feels like she is having some mild cramping. She denies leakage of fluid, bleeding or decreased movement. History Past Medical History Narrative Medical Chronic bronchitis LGSIL Obstetric History Obstetric History Prior 39 week vaginal delivery This complicated by preeclampsia Past Surgical History Narrative Surgical None Family History Family History: Negative Social History Alcohol Use: No Tobacco Use: No Substance Abuse: No Allergies-Medications (Allergen,Severity, Reaction): Coded Allergies: tramadol (Unverified Adverse Reaction, Mild, GI UPSET, 08/18/17) Home Meds No Active Prescriptions or Reported Meds Review of Systems Except as stated in HPI: all other systems reviewed are Neg Physical Exam Narrative GENERAL: Well-nourished, well-developed patient. SKIN: Warm and dry. HEAD: Normocephalic and atraumatic. EYES: No scleral icterus. No injection or drainage. ENT: No nasal drainage noted. Mucous membranes pink. Airway patent. NECK: Supple, trachea midline. No JVD. CARDIOVASCULAR: Regular rate and rhythm without murmurs, gallops, or rubs. RESPIRATORY: Breath sounds equal bilaterally. No accessory muscle use. ABDOMEN/GI: Abdomen soft, non-tender, bowel sounds present, no rebound, no guarding Gravid to [-] weeks size Fundal Height: [-] GENITOURINARY: External Genitalia: intact and normal in appearance BUS glands: [-] Cervix: [-] Dilatation: [2-] Effacement: [-50] Station: [--2] Presentation: [-Vertex] Membranes: [intact ] Uterine Contractions: [Mild, rare-] FHT's: Category: [1-] Baseline: [-] Reactive: [Yes-] Variability: [-] Decels: [-] EXTREMITIES: No cyanosis or edema. BACK: Nontender without obvious deformity. No CVA tenderness. NEUROLOGICAL: Awake and alert. Motor and sensory grossly within normal limits. Five out of 5 muscle strength in all muscle groups. Normal speech. MDM Medical Record Reviewed: Yes Diagnosis Diagnosis: Primary Impression: 36 weeks gestation of Additional Impression: Preeclampsia Disposition: 01 DISCHARGE HOME Condition: Good Scripts No Active Prescriptions or Reported Meds Benjamin Springer MD Sep 16, 2017 22:47
== END 2017-09-16 23:08 | disposition home or self-care (01) ==
LOC: HOBED 22:01
DX: O14.93 Unspecified pre-eclampsia, third trimester (principal); Z3A.36 36 weeks gestation of pregnancy
CPT/HCPCS: 59025

== ENCOUNTER 2017-09-26 05:57 | Inpatient (IN) | payer OTHER ==
[2017-09-26] VITALS (66 sets, daily range): BP systolic 86–131; BP diastolic 37–83; PULSE 67–122; RESP 18–20; TEMP 97.5–98.7; O2SAT 100
[~2017-09-26] VITALS: Ht 175.3 cm; Wt 136.0 kg
[2017-09-26] MEDS ORDERED: PREN29TA PO (06:15)
[2017-09-26] MEDS ORDERED: OXYTOCIN 30 UNITS/NS 500ML PREMIX IV SCH (07:00)
[2017-09-26] MEDS ORDERED: CITRIC ACID-SODIUM CITRATE LIQ 30 ML UDC PO SCH (07:00)
[2017-09-26] MEDS ORDERED: LIDOCAINE HCL 1% 50 ML VIAL INFIL PRN (07:00)
[2017-09-26] MEDS ORDERED: OXYTOCIN 30 UNITS 500ML PREMIX IV ONE (07:00)
[2017-09-26] MEDS ORDERED: MINERAL OIL 10 ML VIAL TOPICAL PRN (07:00)
[2017-09-26] MEDS ORDERED: LACTATED RINGER'S 1000 ML BOLUS IV PRN (07:00)
[2017-09-26] MEDS ORDERED: NS 500 ML BOLUS IV PRN (07:00)
[2017-09-26] MEDS ORDERED: NS 1000 ML IV PRN (07:00)
[2017-09-26] MEDS ORDERED: LIDOCAINE HCL 1% 50 ML VIAL I-DERMAL PRN (07:00)
[2017-09-26 07:46] LABS: AUTOMATED NEUTROPHIL # 10.6 TH/MM3 (1.8-7.7); BASOPHIL % 0.2 % (0.0-2.0); EOSINOPHIL # 0.1 TH/MM3 (0-0.4); EOSINOPHIL % 0.9 % (0.0-4.0); HEMATOCRIT 32.5 % (35.0-46.0); HEMOGLOBIN 10.8 GM/DL (11.6-15.3); LYMPH % 16.2 % (9.0-44.0); LYMPHOCYTE # 2.3 TH/MM3 (1.0-4.8); MEAN CELL VOLUME 85.1 FL (80.0-100.0); MEAN CORPUSCULAR HEMOGLOBIN 28.2 PG (27.0-34.0); MEAN CORPUSCULAR HGB CONC 33.1 % (32.0-36.0); MONO % 7.9 % (0.0-8.0); MONOCYTE # 1.1 TH/MM3 (0-0.9); NEUT % 74.8 % (16.0-70.0); PLATELET COUNT 281 TH/MM3 (150-450); RED BLOOD COUNT 3.82 MIL/MM3 (4.00-5.30); RED CELL DISTRIBUTION WIDTH 15.4 % (11.6-17.2); WHITE BLOOD COUNT 14.1 TH/MM3 (4.0-11.0)
[2017-09-26 07:50] LABS: BACTERIA, URINE OCC /hpf; BILIRUBIN, URINE NEG (NEG); BLOOD, URINE NEG (NEG); GLUCOSE,URINE 300 mg/dL (NEG); KETONE, URINE NEG (NEG); MUCUS URINE FEW /lpf (OCC); NITRITE,URINE NEG (NEG); PH, URINE 5.5 (5.0-8.5); SQUAMOUS EPITHELIAL CELL URINE 5 /hpf (0-5); URINE COLOR YELLOW (YELLW/STRAW); URINE LEUKOCYTE ESTERASE SMALL (NEG)
[2017-09-26] MEDS: LACTATED RINGER'S 1000 ML IV SCH ×2 (08:02→17:14)
--- NOTE | 2017-09-26 08:29 | PD.LABORPN ---
Subjective Subjective pt comfortable, has pre-eclampsia with elevated BPs, headaches, proteinuria 600mg /24 hr Objective Vital Signs Vital Signs Date Time Temp Pulse Resp B/P (MAP) Pulse Ox O2 Delivery O2 Flow Rate FiO2 09/26/17 07:59 18 09/26/17 07:48 74 121/75 (90) 09/26/17 07:10 97.6 83 18 115/78 (90) Objective Pelvic Exam: Cervix: [-] Dilatation: [-] 3-4 Effacement: [-] 50 Station: [-] -1 Presentation: [-] vtx Membranes: [intact or ruptured] arom, clear Uterine Contractions: [-] irreg FHT's: Category: [-] 1 Baseline: [-] Reactive: [-] R Variability: [-] Decels: [-] Weeks Gestation: 37 Gest Age Assessed Date: Sep 26, 2017 Gest Age Assessed Time: 08:22 Pt started active labor?: Yes Active labor start date: Sep 26, 2017 Active labor start time: 08:22 Medical induction of labor?: Yes Medical induction start date: Sep 26, 2017 Medical induction start time: 08:22 Artificial rupture of membrane: Yes Artificial ROM date: Sep 26, 2017 Artifical ROM time: 08:22 Assessment/Plan Problem List: (1) Proteinuria affecting in third trimester ICD Codes: O12.13 - Gestational proteinuria, third trimester Status: Acute (2) Pre-eclampsia in third trimester ICD Codes: O14.93 - Unspecified pre-eclampsia, third trimester Status: Acute (3) state, incidental ICD Codes: Z33.1 - state, incidental Status: Acute Assessment and Plan IUP at 37 6/7 wks, pre-eclampsia, headaches, 600 mg protein/24 hr AROM, pitocin, analgesia prn, anticipate Sanaz Rios MD Sep 26, 2017 08:29
--- NOTE | 2017-09-26 09:15 | MH ---
cc: RODRIGO HARGROVE DATE OF ADMISSION: 09/26/2017 HISTORY She is 21 years old, 2, para 1 0-0-1 intrauterine at 37 weeks and 6 days with preeclampsia. care has been with [place] [employer]. Group B strep is negative. Blood pressure is 130/70. She has had 600 mg of protein in a 24-hour urine, 5 pound weight gain in the last 4 days. PAST OB HISTORY Significant for a vaginal delivery in 2013 at 39 weeks, 6 pounds 12 ounces. 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 Her last Pap smear in June 2016 was normal. PAST MEDICAL HISTORY She denies a history of hypertension, diabetes or asthma. PAST SURGICAL HISTORY Unremarkable. SOCIAL HISTORY She is a former cigarette smoker. MEDICATIONS She takes vitamins. ALLERGIES SHE IS ALLERGIC TO TRAMADOL. PHYSICAL EXAMINATION VITAL SIGNS: Blood pressure is 130/70. She is 300 pounds, 1+ proteinuria on urine dip. HEAD: Examination within normal limits. HEART: Examination within normal limits. CHEST: Examination within normal limits. LUNGS: Examination within normal limits. ABDOMEN: Soft and nontender. Gravid. PELVIC: On pelvic exam she is 2-3 cm dilated, 50% effaced, -1 station, anterior cervix. EXTREMITIES: She has no calf tenderness. ASSESSMENT/PLAN She is 21-year-old 2, para 1 intrauterine at 37 weeks 6 days with preeclampsia. She has been counseled as to risks, benefits, alternatives of induction of labor. All of her questions have been answered. She is group B strep negative. MD RON Gutierrez/GUILHERME /4:16 PM /9:10 AM
--- NOTE | 2017-09-26 09:15 | MH ---
cc: RODRIGO HARGROVE DATE OF ADMISSION: 09/26/2017 HISTORY She is 21 years old, 2, para 1 0-0-1 intrauterine at 37 weeks and 6 days with preeclampsia. care has been with [facility]. Group B strep is negative. Blood pressure is 130/70. She has had 600 mg of protein in a 24-hour urine, 5 pound weight gain in the last 4 days. PAST OB HISTORY Significant for a vaginal delivery in 2013 at 39 weeks, 6 pounds 12 ounces. 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 Her last Pap smear in June 2016 was normal. PAST MEDICAL HISTORY She denies a history of hypertension, diabetes or asthma. PAST SURGICAL HISTORY Unremarkable. SOCIAL HISTORY She is a former cigarette smoker. MEDICATIONS She takes vitamins. ALLERGIES SHE IS ALLERGIC TO TRAMADOL. PHYSICAL EXAMINATION VITAL SIGNS: Blood pressure is 130/70. She is 300 pounds, 1+ proteinuria on urine dip. HEAD: Examination within normal limits. HEART: Examination within normal limits. CHEST: Examination within normal limits. LUNGS: Examination within normal limits. ABDOMEN: Soft and nontender. Gravid. PELVIC: On pelvic exam she is 2-3 cm dilated, 50% effaced, -1 station, anterior cervix. EXTREMITIES: She has no calf tenderness. ASSESSMENT/PLAN She is 21-year-old 2, para 1 intrauterine at 37 weeks 6 days with preeclampsia. She has been counseled as to risks, benefits, alternatives of induction of labor. All of her questions have been answered. She is group B strep negative. MD RON Gutierrez/GUILHERME /4:16 PM /9:10 AM
--- NOTE | 2017-09-26 09:15 | MH ---
cc: RODRIGO HARGROVE DATE OF ADMISSION: 09/26/2017 HISTORY She is 21 years old, 2, para 1 0-0-1 intrauterine at 37 weeks and 6 days with preeclampsia. care has been with [facility]. Group B strep is negative. Blood pressure is 130/70. She has had 600 mg of protein in a 24-hour urine, 5 pound weight gain in the last 4 days. PAST OB HISTORY Significant for a vaginal delivery in 2013 at 39 weeks, 6 pounds 12 ounces. PAST MECHANICAL RESEARCH ENGINEER HISTORY She had a colposcopy in 2013. Her last Pap smear in June 2016 was normal. PAST MEDICAL HISTORY She denies a history of hypertension, diabetes or asthma. PAST SURGICAL HISTORY Unremarkable. SOCIAL HISTORY She is a former cigarette smoker. MEDICATIONS She takes vitamins. ALLERGIES SHE IS ALLERGIC TO TRAMADOL. PHYSICAL EXAMINATION VITAL SIGNS: Blood pressure is 130/70. She is 300 pounds, 1+ proteinuria on urine dip. HEAD: Examination within normal limits. HEART: Examination within normal limits. CHEST: Examination within normal limits. LUNGS: Examination within normal limits. ABDOMEN: Soft and nontender. Gravid. PELVIC: On pelvic exam she is 2-3 cm dilated, 50% effaced, -1 station, anterior cervix. EXTREMITIES: She has no calf tenderness. ASSESSMENT/PLAN She is 21-year-old 2, para 1 intrauterine at 37 weeks 6 days with preeclampsia. She has been counseled as to risks, benefits, alternatives of induction of labor. All of her questions have been answered. She is group B strep negative. MD RON Gutierrez/GUILHERME /4:16 PM /9:10 AM
[2017-09-26] MEDS ORDERED: fentaNYL 2MCG-BUPIV 0.125% INJ 100 ML ONE (11:48)
[2017-09-26] MEDS ORDERED: ePHEDrine/NS 25 MG/5 ML SYR ONE (11:49)
[2017-09-26] MEDS ORDERED: DO NOT ADMINISTER ANTICOAGULANTS PRN (13:45)
[2017-09-26] MEDS ORDERED: NO SYSTEM NARCOTICS PRN (13:45)
[2017-09-26] MEDS ORDERED: ePHEDrine/NS 25 MG/5 ML SYR IV PUSH PRN (13:45)
[2017-09-26] MEDS ORDERED: fentaNYL 2MCG-BUPIV 0.125% 100 ML EPIDURAL SCH (13:45)
--- NOTE | 2017-09-26 16:31 | PD.OB.DELI ---
Weeks gestation: 37 Gest age assessed date: Sep 26, 2017 Gest age assessed time: 08:22 Pt started active labor?: Yes Active labor start date: Sep 26, 2017 Active labor start time: 08:22 Medical induction of labor?: Yes Medical induction start date: Sep 26, 2017 Medical induction start time: 08:22 Artificial rupture of membrane: Yes Artificial ROM date: Sep 26, 2017 Artifical ROM time: 08:22 Anesthesia: Epidural Episiotomy: None Vaginal Delivery: Normal Presentation: Occiput posterior Nuchal Cord: x1 Delayed cord clamping (45 sec): Yes Infant: Male Delivery date: Sep 26, 2017 Delivery time: 16:15 One Minute : 9 Five Minute : 9 Weight: 7-4 Placenta: Spontaneous delivery Laceration: Perineal laceration, 2 deg Repair: Chromic interrupted, Vicryl interrupted Estimated blood loss: 350cc Sanaz Rios MD Sep 26, 2017 16:31
[2017-09-26] MEDS ORDERED: ZOLPIDEM TARTRATE 5 MG TAB PO PRN (16:45)
[2017-09-26] MEDS ORDERED: BENZOCAINE 20% TOPICAL SPRAY 60 ML CAN TOPICAL PRN (16:45)
[2017-09-26] MEDS ORDERED: ACETAMINOPHEN 325 MG TAB PO PRN (16:45)
[2017-09-26] MEDS ORDERED: WITCH HAZEL 50%/GLYCERIN 12.5% 40 PAD JAR TOPICAL PRN (16:45)
[2017-09-26] MEDS ORDERED: OXYTOCIN 30 UNITS-500ML PREMIX 500 ML IV SCH (16:45)
[2017-09-26] MEDS ORDERED: DOCUSATE SODIUM 50 MG/SENNA 8.6 MG TAB PO PRN (16:45)
[2017-09-26] MEDS ORDERED: SODIUM CHLORIDE 0.9% FLUSH 10 ML FLUSH IV FLUSH PRN (16:45)
[2017-09-26] MEDS ORDERED: ONDANSETRON ODT 4 MG TAB PO PRN (16:45)
[2017-09-26] MEDS ORDERED: ALUMINUM/MAGNESIUM/SIMETH 30 ML CUP PO PRN (16:45)
[2017-09-26] MEDS ORDERED: MEASLES, MUMPS, RUBELLA VACCINE 0.5 ML VIAL SQ ONE (17:00)
[2017-09-26] MEDS ORDERED: DIPHTH/TETANUS/ACEL PERTUSSIS (BOOSTER) 0.5 ML VIAL/PFS IM ONE (17:00)
[2017-09-26] MEDS ORDERED: SODIUM CHLORIDE 0.9% FLUSH 10 ML FLUSH IV FLUSH SCH (21:00)
[2017-09-27] MEDS: IBUPROFEN 600 MG TAB PO PRN ×3 (00:50→19:47)
[2017-09-27 02:00] VITALS: BP 111/62; PULSE 66; RESP 18; TEMP 97.6
[2017-09-27 07:45] VITALS: BP 114/72; PULSE 67; RESP 16; TEMP 97.9
--- NOTE | 2017-09-27 08:45 | HHI.OB ---
Subjective Post Day: 1 Remarks s/p uncomplicated Objective Vitals/I&O Vital Signs Date Time Temp Pulse Resp B/P (MAP) Pulse Ox O2 Delivery O2 Flow Rate FiO2 09/27/17 08:02 16 09/27/17 07:45 97.9 67 16 114/72 (86) 09/27/17 02:00 66 111/62 (78) 09/27/17 02:00 97.6 18 09/26/17 20:00 98.7 100 09/26/17 20:00 81 20 121/57 (78) 09/26/17 20:00 98.7 81 20 121/57 (78) 100 09/26/17 18:35 118/66 (83) 09/26/17 18:35 97.6 85 18 09/26/17 17:30 88 106/73 (84) 09/26/17 17:17 18 09/26/17 17:16 88 99/61 (74) 09/26/17 17:05 97.7 09/26/17 17:01 88 97/71 (80) 09/26/17 16:52 18 09/26/17 16:45 90 122/62 (82) 09/26/17 16:37 92 119/78 (92) 09/26/17 16:36 18 09/26/17 15:32 113 124/80 (95) 09/26/17 15:00 98 131/83 (99) 09/26/17 14:52 98.2 09/26/17 14:51 18 09/26/17 14:51 96 106/58 (74) 09/26/17 14:31 92 104/57 (73) 09/26/17 14:20 94 115/53 (73) 09/26/17 14:05 18 09/26/17 14:01 104 111/75 (87) 09/26/17 13:55 99 09/26/17 13:50 101 09/26/17 13:50 110 120/60 (80) 09/26/17 13:45 106 09/26/17 13:40 118 09/26/17 13:35 109 09/26/17 13:31 122 111/52 (71) 09/26/17 13:30 112 09/26/17 13:25 105 09/26/17 13:20 105 09/26/17 13:15 98.2 09/26/17 13:15 107 09/26/17 13:10 105 09/26/17 13:10 18 09/26/17 13:05 97 09/26/17 13:01 88 113/55 (74) 09/26/17 13:00 100 09/26/17 12:56 93 118/66 (83) 09/26/17 12:55 95 09/26/17 12:51 89 115/60 (78) 09/26/17 12:50 96 09/26/17 12:46 81 110/63 (79) 09/26/17 12:45 85 09/26/17 12:41 78 116/65 (82) 09/26/17 12:40 88 09/26/17 12:35 83 09/26/17 12:35 96 107/59 (75) 09/26/17 12:33 85 112/60 (77) 09/26/17 12:31 95 86/37 (53) 09/26/17 12:30 92 09/26/17 12:26 88 103/63 (76) 09/26/17 12:25 89 09/26/17 12:21 97 110/54 (72) 09/26/17 12:20 85 09/26/17 12:15 78 09/26/17 12:15 78 118/62 (80) 09/26/17 12:11 75 129/72 (91) 09/26/17 12:10 92 09/26/17 12:05 72 09/26/17 12:02 74 116/69 (85) 09/26/17 12:01 18 09/26/17 12:00 78 09/26/17 11:06 67 130/78 (95) 09/26/17 11:05 97.5 18 09/26/17 10:13 18 09/26/17 10:13 70 117/71 (86) 09/26/17 09:15 71 106/62 (77) 09/26/17 09:14 98.5 18 09/26/17 08:45 18 Objective Remarks GENERAL: Well-nourished, well-developed patient. CARDIOVASCULAR: Regular rate and rhythm without murmurs, gallops, or rubs. RESPIRATORY: Breath sounds equal bilaterally. No accessory muscle use. ABDOMEN/GI: Abdomen soft, non-tender. Fundus: Firm, non-tender at umbilicus. GENITOURINARY: Light bleeding. EXTREMITIES: No cyanosis or edema, non-tender, without signs of DVT. Medications and IVs Current Medications Medications (Trade) Dose Ordered Sig/Radha Route Start Time Stop Time Status Last Admin (NS Flush) 2 ml BID IV FLUSH 09/26/17 21:00 09/26/17 21:24 (NS Flush) 2 ml UNSCH PRN IV FLUSH 09/26/17 16:45 (Tylenol) 650 mg Q4H PRN PO 09/26/17 16:45 (Motrin) 600 mg Q6H PRN PO 09/26/17 16:45 09/27/17 07:02 (Americaine 20% Top Spr) 1 spray Q4H PRN TOPICAL 09/26/17 16:45 09/26/17 20:55 (Tucks Pads) 1 applic QID PRN TOPICAL 09/26/17 16:45 09/26/17 20:55 (Radha-Colace) 2 tab Q12H PRN PO 09/26/17 16:45 (Ambien) 5 mg HS PRN PO 09/26/17 16:45 (Mag-Al Plus Susp Liq) 15 ml Q8H PRN PO 09/26/17 16:45 (Zofran Odt) 4 mg Q6H PRN PO 09/26/17 16:45 Assessment/Plan Problem List: (1) (spontaneous vaginal delivery) ICD Codes: O80 - Encounter for full-term uncomplicated delivery (2) Proteinuria affecting in third trimester ICD Codes: O12.13 - Gestational proteinuria, third trimester Status: Acute (3) Pre-eclampsia in third trimester ICD Codes: O14.93 - Unspecified pre-eclampsia, third trimester Status: Acute (4) state, incidental ICD Codes: Z33.1 - state, incidental Status: Acute Assessment and Plan PPD#1 routine supportive care bottle feeding d/c planning for tmrw 09/28/17 Discharge Planning routine Sugar Briggs MD Sep 27, 2017 08:45
[2017-09-27] MEDS ORDERED: IBUP-232 PO (08:47)
[2017-09-27] MEDS ORDERED: SENN1TAB PO (08:47)
[2017-09-27 13:00] VITALS: BP 114/72; PULSE 76; RESP 16; TEMP 97.5
[2017-09-27 17:00] VITALS: BP 114/68; PULSE 78; RESP 18; TEMP 98.1
[2017-09-27 19:30] VITALS: BP 105/64; PULSE 76; RESP 15; TEMP 97.9
[2017-09-27] MEDS ORDERED: oxyCODONE/ACETAMINOPHEN 5 MG/325 MG TAB PO PRN (22:15)
--- NOTE | 2017-09-28 08:53 | HHI.DS ---
Admission Date Sep 26, 2017 at 05:57 Admitting Diagnosis Diagnosis: Delivery Date: Sep 26, 2017 Vaginal Delivery: Normal : Male Pt Condition on Discharge: Good Discharge Disposition: Discharge Home Discharge Instructions Diet Instructions: As Tolerated, No Restrictions Activities You Can Perform: Shower Only-No Bath Activities to Avoid: Prolonged Standing, Strenuous Activity, Sexual Activity Benjamin Pak MD Sep 28, 2017 08:52
--- NOTE | 2017-09-28 08:55 | HHI.OB ---
Subjective Post Day: 2 Remarks PPD#2, doing well Objective Vitals/I&O Vital Signs Date Time Temp Pulse Resp B/P (MAP) Pulse Ox O2 Delivery O2 Flow Rate FiO2 09/27/17 19:30 97.9 76 15 105/64 (78) 09/27/17 17:00 98.1 78 18 114/68 (83) 09/27/17 13:00 97.5 76 16 114/72 (86) Objective Remarks GENERAL: Well-nourished, well-developed patient. CARDIOVASCULAR: Regular rate and rhythm without murmurs, gallops, or rubs. RESPIRATORY: Breath sounds equal bilaterally. No accessory muscle use. ABDOMEN/GI: Abdomen soft, non-tender. Fundus: Firm, non-tender at umbilicus. GENITOURINARY: Light bleeding. EXTREMITIES: No cyanosis or edema, non-tender, without signs of DVT. Medications and IVs Current Medications Medications (Trade) Dose Ordered Sig/Radha Route Start Time Stop Time Status Last Admin (NS Flush) 2 ml BID IV FLUSH 09/26/17 21:00 09/26/17 21:24 (NS Flush) 2 ml UNSCH PRN IV FLUSH 09/26/17 16:45 (Tylenol) 650 mg Q4H PRN PO 09/26/17 16:45 (Motrin) 600 mg Q6H PRN PO 09/26/17 16:45 09/27/17 19:47 (Americaine 20% Top Spr) 1 spray Q4H PRN TOPICAL 09/26/17 16:45 09/26/17 20:55 (Tucks Pads) 1 applic QID PRN TOPICAL 09/26/17 16:45 09/26/17 20:55 (Radha-Colace) 2 tab Q12H PRN PO 09/26/17 16:45 (Ambien) 5 mg HS PRN PO 09/26/17 16:45 (Mag-Al Plus Susp Liq) 15 ml Q8H PRN PO 09/26/17 16:45 (Zofran Odt) 4 mg Q6H PRN PO 09/26/17 16:45 (Percocet 5-325 Mg) 1 tab Q4H PRN PO 09/27/17 22:15 09/27/17 22:27 Assessment/Plan Problem List: (1) (spontaneous vaginal delivery) ICD Codes: O80 - Encounter for full-term uncomplicated delivery (2) Proteinuria affecting in third trimester ICD Codes: O12.13 - Gestational proteinuria, third trimester Status: Acute (3) Pre-eclampsia in third trimester ICD Codes: O14.93 - Unspecified pre-eclampsia, third trimester Status: Acute (4) state, incidental ICD Codes: Z33.1 - state, incidental Status: Acute Assessment and Plan PPD#2 routine supportive care bottle feeding d/c planning for 09/28/17 Infant for circ. Discharge Planning routine Attending Attestation seen by Benjamin Lang MD Sep 28, 2017 08:55
== END 2017-09-28 13:24 | disposition home or self-care (01) | DRG 775 ==
LOC: H2EB 05:57 → H1EA 18:06
PROVIDERS: ADMIT Obstetrics & Gynecology; ATTEND Obstetrics & Gynecology
PROC: 10E0XZZ Delivery of Products of Conception, External Approach (ICD-10-PCS; principal; 2017-09-26)
PROC: 0KQM0ZZ Repair Perineum Muscle, Open Approach (ICD-10-PCS; 2017-09-26)
PROC: 10907ZC Drainage of Amniotic Fluid, Therapeutic from Products of Conception, Via Natural or Artificial Opening (ICD-10-PCS; 2017-09-26)
PROC: 3E0P3VZ Introduction of Hormone into Female Reproductive, Percutaneous Approach (ICD-10-PCS; 2017-09-26)
PROC: 3E0R3BZ Introduction of Anesthetic Agent into Spinal Canal, Percutaneous Approach (ICD-10-PCS; 2017-09-26)
PROC: 00HU33Z Insertion of Infusion Device into Spinal Canal, Percutaneous Approach (ICD-10-PCS; 2017-09-26)
DX: O14.94 Unspecified pre-eclampsia, complicating childbirth (principal); O70.1 Second degree perineal laceration during delivery; Z3A.37 37 weeks gestation of pregnancy; Z37.0 Single live birth; Z87.891 Personal history of nicotine dependence
CPT/HCPCS: 59025; 80307; 81001; 85025; 86900; 86901; J2590; J3010; J7120